=== PATIENT | male | born 1955 | race Caucasian/White ===

== ENCOUNTER 2025-04-27 08:33 | Outpatient (CLI) | payer MEDICARE ==
--- NOTE | 2025-04-27 11:42 | RADIOLOGY REPORT ---
Procedure: CT CT CHEST Reason for study/Clinical History: SHORTNESS OF BREATH Comparison Study: None TECHNIQUE: Multidetector CT of the chest was performed from the lung apices to the upper abdomen with out the use of intravenous contract. Axial, coronal and sagittal multiplanar reformats were performed . Radiation Dose Information: CT Dose: CTDI volume is 13 mGy. Dose-length product is 515 mGy*cm The dose indicators for CT are the volume Computed Tomography (CT) Dose Index (CTDIvol) and the Dose Length Product (DLP), and are measured in units of mGy and mGy-cm, respectively. These indicators are not patient dose, but values generated from the CT scanner acquisition factors. The report includes radiation exposure data for exposures received during this examination. FINDINGS: Lower neck: Unremarkable. Lungs: Mild centrilobular emphysema. No focal consolidation. 0.5 cm ground-glass nodule in the right upper lobe, image 39 0.5 cm ground-glass nodule in the left upper lobe, image 48 0.5 cm nodule in the right upper lobe, image 49 0.5 cm nodule in the left lower lobe, image 61 0.4 cm nodule in the right middle lobe, image 61 0.6 cm nodule in the right lower lobe, image 67 Heart/Vascular Structures: Moderate 2 vessel coronary artery disease. Lymph Nodes: No adenopathy Pleura: No pleural effusion or significant pneumothorax. Musculoskeletal: No acute osseous abnormality. Degenerative changes of the spine. Soft tissues: Normal. Upper abdomen: Limited portions of the upper abdomen are unremarkable. IMPRESSION: Mild centrilobular emphysema. No focal consolidation. 0.5 cm ground-glass nodule in the right upper lobe, image 39 0.5 cm ground-glass nodule in the left upper lobe, image 48 0.5 cm nodule in the right upper lobe, image 49 0.5 cm nodule in the left lower lobe, image 61 0.4 cm nodule in the right middle lobe, image 61 0.6 cm nodule in the right lower lobe, image 67 Moderate 2 vessel coronary artery disease. Fleischner Society pulmonary nodule recommendations (2017): Single solid nodule <6 mm Low-risk patients: no routine follow-up required High-risk patients: optional CT at 12 months (particularly with suspicious nodule morphology and/or upper lobe location) Solitary solid nodule 6-8 mm Low-risk patients: CT at 6-12 months, then consider CT at 18-24 months High-risk patients: CT at 6-12 months, then CT at 18-24 months Solitary solid nodule >8 mm (>250 mm3) Low-risk and high-risk patients: consider CT at 3 months, PET/CT, or tissue sampling Multiple solid nodules <6 mm Low-risk patients: no routine follow-up required High-risk patients: optional CT at 12 months Multiple solid nodules >6 mm Low-risk patients: CT at 3-6 months, then consider CT at 18-24 months High-risk patients: CT at 3-6 months, then CT at 18-24 months When multiple nodules are present, the most suspicious nodule should guide further individualized management. Solitary groundglass opacities < 6 mm require no follow-up Multiple groundglass opacities < 6 mm: CT 3-6 months. If stable consider CT at 2 , and 4 years Groundglass opacities >6 mm: follow-up in 6-12 months and then every 2 years for 5 years. Groundglass opacities greater than 6 mm with part solid component follow-up CT in 3-6 months to confirm persistence. If unchanged and solid component remains less than [address] for 5 years Multiple groundglass opacities greater than 6 mm: CT at 3-6 months. Subsequent management based on the most suspicious nodules. These recommendations do not necessarily apply to women, patients with immunosuppression or a prior history of cancer, patients with multiple nodules that are suspicious for metastasis or infection, or patients with mediastinal lymphadenopathy or pleural effusion in whom cancer is strongly suspected.
== END 2025-04-27 23:59 | disposition home or self-care (01) ==
LOC: RAD 08:33
PROVIDERS: ATTEND Nurse Practitioner Family
DX: J43.2 Centrilobular emphysema (principal); R06.02 Shortness of breath; I25.10 Atherosclerotic heart disease of native coronary artery without angina pectoris; R91.8 Other nonspecific abnormal finding of lung field; M47.812 Spondylosis without myelopathy or radiculopathy, cervical region
CPT/HCPCS: 71250